=== PATIENT | male | born 1960 | race Two or more races ===

== ENCOUNTER 2024-02-02 22:27 | Inpatient (IN) | payer MEDICAID, OTHER ==
[~2024-02-02] VITALS: Ht 165.1 cm; Wt 73.1 kg
[2024-02-02 23:21] LABS: Basophils # (auto) 0 10 ^3/uL (0-0.2); Eosinophils # (auto) 0 10 ^3/uL (0-0.8); Lymphocytes # (auto) 1.2 10 ^3/uL (0.4-5.4); Lymphocytes % (auto) 13.1 % (10.0-50.0); Monocytes # (auto) 0.4 10 ^3/uL (0-1.3)
[2024-02-02 23:22] LABS: Basophils % (auto) 0.4 % (0.0-2.0); Eosinophils % (auto) 0.1 % (0.0-7.0); Hemoglobin 14.6 g/dL (13.5-17.5); Mean Corpuscular Hemoglobin 36.7 pg (28.0-32.0); Mean Corpuscular Hgb Conc. 34.8 g/dL (32.0-36.0); Mean Corpuscular Volume 105.5 fL (80.0-100.0); Monocytes % (auto) 4.8 % (0.0-12.0); Neutrophils # (auto) 7.6 10 ^3/uL (1.6-8.6); Neutrophils % (auto) 81.6 % (37.0-80.0); Nucleated Red Blood Cells % 0.2 %; Platelet Count (auto) 284 10^3/uL (140-450); Red Blood Cells 3.98 10^6/uL (4.5-5.90); Red Cell Distribution Width 14.5 % (11.8-14.3); White Blood Cell 9.3 10^3/uL (4.4-10.8)
[2024-02-02 23:50] LABS: Alanine Aminotransferase 19 U/L (7-40); Alkaline Phosphatase 122 U/L (46-116); Anion Gap 11 (5-15); Aspartate Aminotransferase 58 U/L (13-40); Blood Urea Nitrogen 16 mg/dL (9-23); Calcium 9.1 mg/dL (8.7-10.4); Carbon Dioxide 29 mmol/L (20-30); Chloride 88 mmol/L (98-107); Glucose 285 mg/dL (74-106); Potassium 2.8 mmol/L (3.5-5.1); Sodium 128 mmol/L (136-145)
[2024-02-02 23:51] LABS: Bilirubin, Total 2.3 mg/dL (0.2-1.0); Total Protein 7.2 g/dL (5.7-8.2)
[2024-02-03] VITALS (34 sets, daily range): BP systolic 83–132; BP diastolic 43–79; PULSE 54–101; RESP 11–20; TEMP 98.2–98.4; O2SAT 95–100
[2024-02-03] MEDS: THIAMINE 100mg/ml INJ (200mg/2ml VIAL) IV ONE (02:21)
[2024-02-03] MEDS: SODIUM CHLORIDE 0.9% 1,000 ML IV ONE ×4 (02:21→10:49)
[2024-02-03] MEDS: LORazepam 2MG/ML-1ML VIAL IV ONE (04:49)
[2024-02-03] MEDS: POTASSIUM EFFERVESENT TAB 25 MEQ PO ONE (04:50)
[2024-02-03] MEDS ORDERED: DOCUSATE SOD 100 MG CAP PO PRN (05:30)
[2024-02-03] MEDS ORDERED: ACETAMINOPHEN 325 MG TAB PO PRN (05:30)
[2024-02-03] MEDS ORDERED: HYDROcodone-ACET 5/325MG TAB PO PRN (05:30)
[2024-02-03] MEDS ORDERED: ONDANSETRON HCL 4 MG/2 ML VIAL IV PRN (05:30)
[2024-02-03] MEDS ORDERED: MORPHINE SULFATE INJ 2 MG/ml SYRG IV PRN (05:45)
[2024-02-03] MEDS ORDERED: NITROGLYCERIN 0.4 MG SL TAB SL PRN (05:45)
[2024-02-03 05:47] LABS: Basophils % (auto) 0.5 % (0.0-2.0); Eosinophils # (auto) 0 10 ^3/uL (0-0.8); Lymphocytes # (auto) 1.5 10 ^3/uL (0.4-5.4); Mean Corpuscular Hemoglobin 37.6 pg (28.0-32.0); Mean Corpuscular Volume 104.8 fL (80.0-100.0)
[2024-02-03] MEDS: POTASSIUM CHL 20MEQ/100ML 100 ML IV ONE (05:49)
[2024-02-03 05:54] LABS: Basophils # (auto) 0.1 10 ^3/uL (0-0.2); Eosinophils % (auto) 0.1 % (0.0-7.0); Hematocrit 35.3 % (41.0-53.0); Hemoglobin 12.6 g/dL (13.5-17.5); Lymphocytes % (auto) 14.6 % (10.0-50.0); Mean Corpuscular Hgb Conc. 35.8 g/dL (32.0-36.0); Monocytes # (auto) 0.6 10 ^3/uL (0-1.3); Monocytes % (auto) 6.4 % (0.0-12.0); Neutrophils # (auto) 7.9 10 ^3/uL (1.6-8.6); Neutrophils % (auto) 78.4 % (37.0-80.0); Platelet Count (auto) 239 10^3/uL (140-450); Red Blood Cells 3.37 10^6/uL (4.5-5.90); Red Cell Distribution Width 14.1 % (11.8-14.3)
[2024-02-03 06:03] LABS: Alanine Aminotransferase 19 U/L (7-40); Albumin 3.3 g/dL (3.2-4.8); Alkaline Phosphatase 102 U/L (46-116); Anion Gap 7 (5-15); Aspartate Aminotransferase 41 U/L (13-40); BUN/Creatinine Ratio 13.8 (10.0-20.0); Blood Urea Nitrogen 17 mg/dL (9-23); Calcium 8.2 mg/dL (8.7-10.4); Carbon Dioxide 34 mmol/L (20-30); Chloride 92 mmol/L (98-107)
[2024-02-03 06:17] LABS: Glucose 148 mg/dL (74-106); Sodium 133 mmol/L (136-145)
[2024-02-03 06:18] LABS: Potassium 2.5 mmol/L (3.5-5.1)
[2024-02-03] MEDS: SODIUM CHLORIDE 0.9% 1,000 ML IV SCH ×2 (07:37→10:45)
[2024-02-03] MEDS: PANTOPRAZOLE 40 MG/10 ML VIAL INJ IV SCH (09:44)
[2024-02-03] MEDS: FOLIC ACID 1 MG in D5W 5% 50 ML INJ SCH (09:45)
[2024-02-03] MEDS: MULTIPLE VITAMIN TAB PO SCH (09:51)
[2024-02-03] MEDS: THIAMINE 100mg/ml INJ (200mg/2ml VIAL) IV SCH (09:52)
[2024-02-03] MEDS ORDERED: SODIUM CHLORIDE 0.9% 1,000 ML IV SCH (10:30)
[2024-02-03] MEDS: NOREPINEPHRINE 8 MG/250ML KIT 250 ML IV SCH (12:08)
[2024-02-03] MEDS: chlordiazePOXIDE HCL 25 MG CAP PO PRN (17:45)
[2024-02-03] MEDS: POTASSIUM CHL 20MEQ/100ML 100 ML IV SCH (17:46)
[2024-02-03] MEDS: FOLIC ACID 1 MG, MAGNESIUM SULF SDV 50% 8 MEQ, MULTIPLE VITAMIN 10 ML, THIAMINE INJ 100... INJ SCH (18:01)
[2024-02-04] VITALS (36 sets, daily range): BP systolic 77–129; BP diastolic 6–76; PULSE 54–109; RESP 9–22; TEMP 97.6–99; O2SAT 76–100
[2024-02-04 04:03] LABS: Basophils # (auto) 0 10 ^3/uL (0-0.2); Basophils % (auto) 0.4 % (0.0-2.0); Eosinophils # (auto) 0 10 ^3/uL (0-0.8); Eosinophils % (auto) 0.3 % (0.0-7.0); Hemoglobin 10.9 g/dL (13.5-17.5); Lymphocytes # (auto) 1.2 10 ^3/uL (0.4-5.4); Monocytes # (auto) 0.4 10 ^3/uL (0-1.3); Neutrophils # (auto) 7.3 10 ^3/uL (1.6-8.6); Neutrophils % (auto) 81.8 % (37.0-80.0); Nucleated Red Blood Cells % 0.1 %
[2024-02-04 04:08] LABS: Hematocrit 30.7 % (41.0-53.0); Lymphocytes % (auto) 12.9 % (10.0-50.0); Mean Corpuscular Hemoglobin 37.6 pg (28.0-32.0); Mean Corpuscular Hgb Conc. 35.4 g/dL (32.0-36.0); Mean Corpuscular Volume 106.1 fL (80.0-100.0); Monocytes % (auto) 4.6 % (0.0-12.0); Platelet Count (auto) 205 10^3/uL (140-450); Red Blood Cells 2.89 10^6/uL (4.5-5.90); Red Cell Distribution Width 14.5 % (11.8-14.3)
[2024-02-04 04:25] LABS: Alanine Aminotransferase 12 U/L (7-40); Albumin 2.6 g/dL (3.2-4.8); Alkaline Phosphatase 73 U/L (46-116); Anion Gap 6 (5-15); Aspartate Aminotransferase 35 U/L (13-40); BUN/Creatinine Ratio 11.5 (10.0-20.0); Blood Urea Nitrogen 10 mg/dL (9-23); Calcium 7.4 mg/dL (8.7-10.4); Carbon Dioxide 28 mmol/L (20-30); Chloride 106 mmol/L (98-107); Glucose 125 mg/dL (74-106); Potassium 3.1 mmol/L (3.5-5.1); Sodium 140 mmol/L (136-145)
[2024-02-04 04:26] LABS: Bilirubin, Total 1.1 mg/dL (0.2-1.0); Total Protein 4.6 g/dL (5.7-8.2)
[2024-02-04 08:47] LABS: Urine Bacteria None Seen /hpf (None Seen)
[2024-02-04 08:57] LABS: Urine Blood Negative /uL (Negative); Urine Clarity Clear (Clear); Urine Color Light-Yellow (Yellow); Urine Protein, UAD Negative (Negative); Urine Specific Gravity 1.006 (1.001-1.035); Urine Urobilinogen Normal (Negative); Urine WBC <1 /hpf (0 - 3); Urine pH 5.5 (5.0-9.0)
[2024-02-04] MEDS: MULTIPLE VITAMIN TAB PO SCH (10:00)
[2024-02-04] MEDS: THIAMINE HCL 100 MG TAB PO SCH (10:41)
[2024-02-04] MEDS: SOD CHL 0.9%/ KCL 40MEQ 1,000 ML IV ONE (10:45)
[2024-02-04] MEDS: PHENTOLAMINE MESYLATE 5 MG INJ VIAL SUBCUT ONE (12:33)
[2024-02-05] VITALS (12 sets, daily range): BP systolic 86–111; BP diastolic 53–71; PULSE 54–95; RESP 14–21; TEMP 37.4; O2SAT 94–99
[2024-02-05 03:58] LABS: Anion Gap 6 (5-15); Carbon Dioxide 32 mmol/L (20-30); Chloride 101 mmol/L (98-107); Potassium 2.9 mmol/L (3.5-5.1); Sodium 139 mmol/L (136-145)
[2024-02-05 03:59] LABS: Calcium 8.2 mg/dL (8.7-10.4)
[2024-02-05 04:04] LABS: Blood Urea Nitrogen 8 mg/dL (9-23); Glucose 110 mg/dL (74-106)
[2024-02-05] MEDS: POTASSIUM CHL 20 Meq TABLET PO ONE (06:11)
[2024-02-05] MEDS: SOD CHL 0.9%/ KCL 40MEQ 1,000 ML IV ONE (08:17)
[2024-02-05 14:54] LABS: Potassium 3.2 mmol/L (3.5-5.1)
[2024-02-05 15:01] LABS: Magnesium 1.4 mg/dL (1.6-2.6)
[2024-02-05] MEDS: POTASSIUM EFFERVESENT TAB 25 MEQ PO ONE (15:50)
[2024-02-05] MEDS: MAGNESIUM SULFATE 1GM/100ML 100 ML IV ONE (15:51)
== END 2024-02-05 20:51 | disposition home or self-care (01) | DRG 52 ==
LOC: ER 22:27 → TELE 02-03 05:38 → ICU WEST 02-03 16:00 → WEST WING 02-05 09:50
PROVIDERS: ADMIT Nurse Practitioner Family; ATTEND Nurse Practitioner Acute Care
DX: G92.8 Other toxic encephalopathy (principal); R57.1 Hypovolemic shock; N17.0 Acute kidney failure with tubular necrosis; I85.00 Esophageal varices without bleeding; F10.139 Alcohol abuse with withdrawal, unspecified; E87.6 Hypokalemia; R74.8 Abnormal levels of other serum enzymes; R73.9 Hyperglycemia, unspecified; Y90.9 Presence of alcohol in blood, level not specified
CPT/HCPCS: 36415; 80048; 80053; 80320; 81001; 83036; 83735; 84132; 84484; 85025; 87081; 99291; G0378; J2470; J3480; J7060